=== PATIENT | female | born 1950 | race Two or more races ===

== ENCOUNTER 2024-08-27 14:13 | Emergency (ER) | payer BC ==
[~2024-08-27] VITALS: Ht 160 cm; Wt 72.6 kg
[2024-08-27] MEDS ORDERED: LIDOCAINE HCL 1% 10ML VIAL PERCUT ONE (15:00)
[2024-08-27] MEDS ORDERED: LIDOCAINE HCL 1% 10ML VIAL ONE (15:12)
== END 2024-08-27 16:51 ==
LOC: ER 14:16
DX: S01.82XA Laceration with foreign body of other part of head, initial encounter (principal); W01.0XXA Fall on same level from slipping, tripping and stumbling without subsequent striking against object, initial encounter; Y93.89 Activity, other specified; Y92.89 Other specified places as the place of occurrence of the external cause; S60.222A Contusion of left hand, initial encounter